=== PATIENT | female | born 2000 | race American Indian/Alaskan Native ===

== ENCOUNTER 2021-11-06 13:32 | Emergency (ER) | payer MEDICAID ==
[2021-11-06 13:36] VITALS: BP 107/72
[2021-11-06] MEDS ORDERED: methylPREDNISolone Sod Succinate 125 MG/2 ML INJ IV ONE (13:47)
[2021-11-06] MEDS ORDERED: CETIRIZINE 10 MG TAB PO ONE (13:47)
[2021-11-06] MEDS ORDERED: FAMOTIDINE 20 MG/2 ML INJ IV ONE (13:47)
--- NOTE | 2021-11-06 13:54 | Emergency Department Report ---
HPI - General Chief Complaint: Allergic Reaction Time Seen by Provider: 11/06/21 13:47 ED Past Medical Hx - Past Medical History Hx Congestive Heart Failure: No Hx Diabetes: No Hx Asthma: No Hx COPD: No - Social History Smoking Status: Never Smoker - Medications Home Medications: Home Medications Medication Instructions Recorded Confirmed Last Taken Type No Known Home Medications [No 07/06/16 07/06/16 Unknown History Reported Home Medications] ED Review of Systems ROS: Stated complaint: ALLERGIC REACTION Other details as noted in HPI Physical Exam - Physical Exam Vital Signs: Vital Signs 11/06/21 13:35 Temperature 98.2 F Pulse Rate 84 Respiratory 15 Rate Blood Pressure 107/72 O2 Sat by Pulse 97 Oximetry ED Course Vital Signs 11/06/21 13:35 Temperature 98.2 F Pulse Rate 84 Respiratory 15 Rate Blood Pressure 107/72 O2 Sat by Pulse 97 Oximetry Critical care attestation.: If time is entered above; I have spent that time in minutes in the direct care of this critically ill patient, excluding procedure time. ED Disposition Condition: Stable
--- NOTE | 2021-11-06 13:58 | Emergency Department Report ---
ED Allergic Reaction HPI - General Chief complaint: Allergic Reaction Stated complaint: ALLERGIC REACTION Time Seen by Provider: 11/06/21 13:47 Source: patient Mode of arrival: Ambulatory Limitations: No Limitations - History of Present Illness Initial Comments: Chief complaint: Allergic reaction to metronidazole HPI: This is a 20-year-old female with history of bacterial vaginosis who presents with urticaria pruritus itchy throat since last night. She has hives involving her face upper torso thigh regions. She has been on a vegan diet. She strongly suspects metronidazole as a cause. She denies food allergy. She did have similar allergic reaction to metronidazole this past summer. She self treated with Benadryl at that instance without seeking medical care. She denies syncope. She denies wheezing patient has shortness of breath. She denies vomiting. MD Complaint: allergic reaction, hives -: Gradual, Last night Exposure: medication (Metronidazole) Symptoms: rash, itching Severity: mild Treatment Prior to Arrival: none Previous Allergy History: other (Self treatment over the summer similar reaction) - Related Data Previous Rx's Medication Instructions Recorded Last Taken Type Cetirizine HCl [ZyrTEC 10mg cap] 10 mg PO DAILY 3 Days #3 capsule 11/06/21 Unknown Rx EPINEPHrine [Epipen] 0.3 mg IJ ONCE PRN #1 auto.injct 11/06/21 Unknown Rx Famotidine [Pepcid] 20 mg PO BID 3 Days #6 tablet 11/06/21 Unknown Rx Prednisone [predniSONE 10 mg 10 mg PO .TAPER #1 tab.ds.pk 11/06/21 Unknown Rx (6-Day Pack, 21 Tabs)] Allergies Allergy/AdvReac Type Severity Reaction Status Date / Time No Known Allergies Allergy Verified 11/06/21 13:35 ED Review of Systems ROS: Stated complaint: ALLERGIC REACTION Other details as noted in HPI Comment: All other systems reviewed and negative Constitutional: denies: fever, malaise Eyes: denies: as per HPI Respiratory: denies: cough, shortness of breath Cardiovascular: denies: chest pain Gastrointestinal: denies: abdominal pain, nausea, vomiting Skin: rash, lesions ED Past Medical Hx - Past Medical History Previous Medical History?: No Hx Congestive Heart Failure: No Hx Diabetes: No Hx Asthma: No Hx COPD: No - Surgical History Past Surgical History?: Yes Additional Surgical History: - Social History Smoking Status: Never Smoker - Medications Home Medications: Home Medications Medication Instructions Recorded Confirmed Last Taken Type Cetirizine HCl [ZyrTEC 10mg cap] 10 mg PO DAILY 3 Days #3 capsule 11/06/21 Unknown Rx EPINEPHrine [Epipen] 0.3 mg IJ ONCE PRN #1 auto.injct 11/06/21 Unknown Rx Famotidine [Pepcid] 20 mg PO BID 3 Days #6 tablet 11/06/21 Unknown Rx Prednisone [predniSONE 10 mg 10 mg PO .TAPER #1 tab.ds.pk 11/06/21 Unknown Rx (6-Day Pack, 21 Tabs)] ED Physical Exam - General Limitations: No Limitations General appearance: alert, in no apparent distress, other (Normal voice no respiratory distress) - Head Head exam: Present: atraumatic, normocephalic, other (Urticaria involving the forehead and cheek region) - Eye Eye exam: Present: normal appearance - ENT ENT exam: Present: normal orophraynx, mucous membranes moist, other (Normal lip size normal tongue size) - Neck Neck exam: Present: normal inspection, full ROM - Respiratory Respiratory exam: Present: normal lung sounds bilaterally. Absent: respiratory distress, wheezes, rales, rhonchi - Cardiovascular Cardiovascular Exam: Present: regular rate, normal rhythm, normal heart sounds. Absent: systolic murmur, diastolic murmur, rubs, gallop - GI/Abdominal GI/Abdominal exam: Present: soft, normal bowel sounds. Absent: distended, tenderness, guarding, rebound - Extremities Exam Extremities exam: Present: normal inspection - Back Exam Back exam: Present: normal inspection - Neurological Exam Neurological exam: Present: alert, oriented X3 - Psychiatric Psychiatric exam: Present: normal affect, normal mood - Skin Skin exam: Present: warm, dry, intact, normal color, urticaria (Urticaria involving face upper torso upper extremities). 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 In the emergency department patient received IV Solu-Medrol, IV Pepcid p.o. Zyrtec. Referred to millinery blocker as needed. Symptoms rapidly improved with medications provided. Patient is discharged home in good improved condition. Critical care attestation.: If time is entered above; I have spent that time in minutes in the direct care of this critically ill patient, excluding procedure time. ED Disposition Clinical Impression: Allergic reaction caused by a drug Disposition: HOME / SELF CARE / HOMELESS Is pt being admited?: No Does the pt Need Aspirin: No Condition: Stable Instructions: Allergies, Adult, [id number] Prescriptions: EPINEPHrine [Epipen] 0.3 mg IJ ONCE PRN #1 auto.injct PRN Reason: Allergic Reaction Famotidine [Pepcid] 20 mg PO BID 3 Days #6 tablet Prednisone [predniSONE 10 mg (6-Day Pack, 21 Tabs)] 10 mg PO .TAPER #1 tab.ds.pk Cetirizine HCl [ZyrTEC 10mg cap] 10 mg PO DAILY 3 Days #3 capsule Referrals: GLEN RIVERA MD [Referring] - as needed WILLIE OHARA MD [Staff Physician] - 3-5 Days
== END 2021-11-06 15:00 | disposition home or self-care (01) ==
LOC: ED 13:32
DX: T50.905A Adverse effect of unspecified drugs, medicaments and biological substances, initial encounter (principal)
CPT/HCPCS: 96374; 96375; 99282; J2930; J3490